=== PATIENT | male | born 1995 | race African-American/Black ===

== ENCOUNTER 2022-02-09 09:00 | Emergency (ER) | payer SELFPAY | END 2022-02-09 09:55 | disposition home or self-care (01) | LOC: FER 09:00 | DX: M25.512 Pain in left shoulder (principal); F17.200 Nicotine dependence, unspecified, uncomplicated; Z28.310 Unvaccinated for COVID-19; W19.XXXA Unspecified fall, initial encounter; Y92.009 Unspecified place in unspecified non-institutional (private) residence as the place of occurrence of the external cause | CPT/HCPCS: 73030; J1885 ==